=== PATIENT | female | born 1960 | race Caucasian/White ===

== ENCOUNTER 2017-07-14 23:38 | Inpatient (IN) | payer OTHER, SELFPAY ==
[~2017-07-14] VITALS: Ht 157.5 cm; Wt 49.5 kg
[2017-07-15] VITALS (9 sets, daily range): BP systolic 134–201; BP diastolic 87–109
[2017-07-15] MEDS ORDERED: SODIUM CHLORIDE FLUSH 10ML SYR IVF ONE (00:30)
[2017-07-15] MEDS ORDERED: ALBUTEROL/IPRATROPIUM 2.5MG/0.5MG, 3 ML NPPB PRN (00:30)
[2017-07-15] MEDS ORDERED: methylPREDNISolone SOD SUCC 125 MG/2 ML IVP ONE (00:30)
[2017-07-15] MEDS ORDERED: methylPREDNISolone SOD SUCC 125 MG/2 ML ONE (00:49)
[2017-07-15 00:50] LABS: BASOPHILS # (AUTO) 0.03 x10^3/uL (0-0.1); BASOPHILS % (AUTO) 0 % (0-1); EOSINOPHILS # (AUTO) 0.11 x10^3/uL (0-0.4); EOSINOPHILS % (AUTO) 1 % (1-7); LYMPHOCYTES # (AUTO) 1.84 x10^3/uL (1-3.4); LYMPHOCYTES % (AUTO) 20 % (22-44); MD NO; MEAN CORPUSCULAR HEMOGLOBIN 31.4 pg (27.0-34.8); MEAN CORPUSCULAR HGB CONC 34.4 g/dL (32.4-35.8); MEAN CORPUSCULAR VOLUME 91.2 fL (80-100); MEAN PLATELET VOLUME 7.1 fL (7.4-10.4); MONOCYTES # (AUTO) 0.55 x10^3/uL (0.2-0.8); MONOCYTES % (AUTO) 6 % (2-9); NEUTROPHILS # (AUTO) 6.93 x10^3/uL (1.8-6.8); NEUTROPHILS % (AUTO) 73 % (42-75); PLATELET COUNT 445 x10^3/uL (130-400); RED CELL DISTRIBUTION WIDTH 13.2 % (9.6-15.2)
[2017-07-15 00:51] LABS: RAPID INFLUENZA A Negative (Negative); RAPID INFLUENZA B Negative (Negative)
[2017-07-15 01:00] LABS: ALANINE AMINOTRANSFERASE 38 U/L (12-78); ALBUMIN 2.7 g/dL (3.4-5.0); ANION GAP 14 mmol/L (5-15); CALCIUM 8.1 mg/dL (8.5-10.1); CHLORIDE 108 mmol/L (98-107)
[2017-07-15 01:05] LABS: ALKALINE PHOSPHATASE 128 U/L (45-117); BILIRUBIN,TOTAL 0.3 mg/dL (0.2-1.0); CREATININE 0.77 mg/dL (0.55-1.02); TOTAL PROTEIN 7.6 g/dL (6.4-8.2); TROPONIN I < 0.015 ng/mL (0.000-0.045)
[2017-07-15] MEDS ORDERED: NS + 40MEQ KCL 1,000 ML IV SCH (01:30)
[2017-07-15] MEDS ORDERED: NS + 20MEQ KCL 1,000 ML IV SCH (01:30)
[2017-07-15] MEDS ORDERED: SODIUM CHLORIDE FLUSH 10ML SYR IVF PRN (01:30)
[2017-07-15] MEDS ORDERED: SODIUM CHLORIDE 0.9% 1,000 ML IV SCH (05:44)
[2017-07-15] MEDS ORDERED: ONDANSETRON 2MG/ML, 2ML IVPush PRN (06:00)
[2017-07-15] MEDS ORDERED: hydrALAzine 20 MG/ML, 1ML IVPush PRN (06:00)
[2017-07-15] MEDS ORDERED: ACETAMINOPHEN 325 MG TABLET PO PRN (06:00)
[2017-07-15] MEDS: methylPREDNISolone SOD SUCC 40 MG/ML IV SCH ×3 (06:13→21:55)
[2017-07-15] MEDS: ENOXAPARIN 40 MG/0.4 ML SQ SCH (06:14)
[2017-07-15] MEDS: CEFTRIAXONE PMX 1GM/50ML 50 ML IV SCH (06:27)
[2017-07-15] MEDS: AZITHROMYCIN 500 MG in SODIUM CHLORIDE 0.9% 250 ML IV SCH (08:10)
[2017-07-15] MEDS: POTASSIUM CHLORIDE 20 MEQ TAB.ER.PRT PO SCH ×2 (08:11→17:21)
[2017-07-15] MEDS ORDERED: NICOTINE 14MG/24 HR PATCH.TD24 TD SCH (16:00)
[2017-07-15] MEDS ORDERED: LORazepam 2 MG/ML, 1ML IVPush ONE (17:30)
[2017-07-15] MEDS ORDERED: hydrALAzine 20 MG/ML, 1ML IV PRN (17:30)
[2017-07-15] MEDS ORDERED: hydrALAzine 20 MG/ML, 1ML ONE (17:35)
[2017-07-15] MEDS ORDERED: MELATONIN 3 MG TABLET PO PRN (21:00)
[2017-07-16 02:02] VITALS: BP 164/72
[2017-07-16] MEDS ORDERED: ALBUTEROL/IPRATROPIUM 2.5MG/0.5MG, 3 ML NPPB PRN (02:30)
[2017-07-16 04:45] LABS: BASOPHILS # (AUTO) 0.03 x10^3/uL (0-0.1); BASOPHILS % (AUTO) 0 % (0-1); EOSINOPHILS % (AUTO) 0 % (1-7); LYMPHOCYTES # (AUTO) 1.49 x10^3/uL (1-3.4); LYMPHOCYTES % (AUTO) 12 % (22-44); MD NO; MEAN CORPUSCULAR HEMOGLOBIN 31.6 pg (27.0-34.8); MEAN CORPUSCULAR HGB CONC 34.3 g/dL (32.4-35.8); MEAN PLATELET VOLUME 7.3 fL (7.4-10.4); MONOCYTES # (AUTO) 0.62 x10^3/uL (0.2-0.8); MONOCYTES % (AUTO) 5 % (2-9); NEUTROPHILS # (AUTO) 9.87 x10^3/uL (1.8-6.8); NEUTROPHILS % (AUTO) 82 % (42-75); PLATELET COUNT 454 x10^3/uL (130-400); RED BLOOD COUNT 4.51 x10^6/uL (3.82-5.3); RED CELL DISTRIBUTION WIDTH 13.3 % (9.6-15.2)
[2017-07-16 04:55] LABS: ANION GAP 9 mmol/L (5-15); CALCIUM 8.9 mg/dL (8.5-10.1); CHLORIDE 111 mmol/L (98-107)
[2017-07-16 04:57] LABS: CREATININE 0.86 mg/dL (0.55-1.02)
[2017-07-16] MEDS: methylPREDNISolone SOD SUCC 40 MG/ML IV SCH (05:41)
[2017-07-16] MEDS: CEFTRIAXONE PMX 1GM/50ML 50 ML IV SCH (05:42)
[2017-07-16] MEDS: ENOXAPARIN 40 MG/0.4 ML SQ SCH (05:42)
[2017-07-16] MEDS: AZITHROMYCIN 500 MG in SODIUM CHLORIDE 0.9% 250 ML IV SCH (06:34)
[2017-07-16 07:05] VITALS: BP 161/97
[2017-07-16] MEDS ORDERED: PRED10TA PO (08:25)
[2017-07-16] MEDS ORDERED: AZIT500T5 PO (08:25)
[2017-07-16] MEDS ORDERED: ALBU6.7H INH (08:25)
[2017-07-16] MEDS ORDERED: CEFD300C37 PO (08:25)
[2017-07-16 13:13] VITALS: BP 163/96
== END 2017-07-16 13:55 | disposition home or self-care (01) | DRG 193 ==
LOC: ED 07-15 01:08 → EDIP 07-15 01:20 → 4WST 07-15 01:44
PROVIDERS: ADMIT Hospitalist; ATTEND Hospitalist
DX: J18.9 Pneumonia, unspecified organism (principal); E43 Unspecified severe protein-calorie malnutrition; J44.0 Chronic obstructive pulmonary disease with (acute) lower respiratory infection; J44.1 Chronic obstructive pulmonary disease with (acute) exacerbation; F10.239 Alcohol dependence with withdrawal, unspecified; E87.6 Hypokalemia; F17.290 Nicotine dependence, other tobacco product, uncomplicated; Y90.9 Presence of alcohol in blood, level not specified; J20.9 Acute bronchitis, unspecified; I10 Essential (primary) hypertension; F41.9 Anxiety disorder, unspecified; Z77.090 Contact with and (suspected) exposure to asbestos; Z68.20 Body mass index [BMI] 20.0-20.9, adult; Z71.6 Tobacco abuse counseling
CPT/HCPCS: 36415; 71045; 80048; 80053; 83605; 83735; 83880; 84100; 84484; 85025; 87040; 87400; 93005; 94640; 96374; J0456; J0696; J1650; J7620; J0360; J2060; J2920; J2930; J7030; J7050

== ENCOUNTER 2020-08-24 20:07 | Inpatient (IN) | payer OTHER ==
[~2020-08-24] VITALS: Ht 157.5 cm; Wt 54.6 kg
[~2020-08-24 20:07] MED LIST: ALBU6.7H8 INH; AZIT500T10 PO; CEFD300C37 PO; PRED10TA PO
--- NOTE | 2020-08-24 21:23 | NUR ---
Pt speaks full complete sentences, CHOUDHURY in NAD. Waiting for orders from [facility].
[2020-08-24] MEDS ORDERED: LORazepam 2 MG/ML, 1ML ONE (21:59)
[2020-08-24] MEDS ORDERED: ALBUTEROL/IPRATROPIUM 2.5MG/0.5MG, 3 ML ONE (21:59)
[2020-08-24] MEDS ORDERED: ALBUTEROL/IPRATROPIUM 2.5MG/0.5MG, 3 ML NPPB ONE (22:00)
[2020-08-24] MEDS ORDERED: LORazepam 2 MG/ML, 1ML IV ONE (22:00)
[2020-08-24] MEDS ORDERED: THIAMINE 100MG TABLET PO ONE (22:00)
[2020-08-24] MEDS ORDERED: SODIUM CHLORIDE FLUSH 10ML SYR IVF ONE (22:00)
[2020-08-24] MEDS ORDERED: THIAMINE 100MG TABLET ONE (22:01)
[2020-08-24 22:02] LABS: BASOPHILS % (AUTO) 0 % (0-1); EOSINOPHILS % (AUTO) 1 % (1-7); LYMPHOCYTES % (AUTO) 11 % (22-44); MEAN CORPUSCULAR HEMOGLOBIN 32.7 pg (27.0-34.8); MEAN PLATELET VOLUME 7.2 fL (7.4-10.4); MONOCYTES % (AUTO) 7 % (2-9); NEUTROPHILS % (AUTO) 81 % (42-75); PLATELET COUNT 287 x10^3/uL (130-400); RED BLOOD COUNT 4.18 x10^6/uL (3.82-5.3)
[2020-08-24 22:08] LABS: MD NO
--- NOTE | 2020-08-24 22:13 | NUR ---
HHN STARTED, MEDS PER ORDER. PT ON CONT PULSE OX MONITOR. NAD. RR EQUAL AND UNLABORED. LABS SENT, PCXR
[2020-08-24 22:16] LABS: ALANINE AMINOTRANSFERASE 24 U/L (12-78); ALBUMIN 3.4 g/dL (3.4-5.0); ANION GAP 8 mmol/L (5-15); CHLORIDE 107 mmol/L (98-107); CREATININE 0.93 mg/dL (0.55-1.02)
[2020-08-24 22:21] LABS: ALKALINE PHOSPHATASE 76 U/L (45-117)
[2020-08-24 22:22] LABS: TROPONIN I 0.274 ng/mL (0.000-0.045)
--- NOTE | 2020-08-24 22:29 | NUR ---
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 Pt has no chest pain.
--- NOTE | 2020-08-24 22:35 | NUR ---
VSS, increase aeration post HHN, no ectopy no chest pain, pt with less tremors post ativan. Pt states "i feel a lot better. Will continue to monitor.
[2020-08-24] MEDS ORDERED: ASPIRIN 81 MG TABLET CHEW ONE (22:37)
[2020-08-24] MEDS ORDERED: NITROGLYCERIN OINT 2%, 1GM TP ONE ×2 (22:37→23:00)
[2020-08-24] MEDS ORDERED: methylPREDNISolone SOD SUCC 125 MG/2 ML ONE (22:37)
--- NOTE | 2020-08-24 22:45 | NUR ---
Pt sleeping from ativan, remains nsr no ectopy no st elevation. No chest pain, no n/v, no sob. States feels better. medicated per order. NTG paste to chest wall. VSS
[2020-08-24] MEDS ORDERED: methylPREDNISolone SOD SUCC 125 MG/2 ML IVPush SCH (23:00)
[2020-08-24] MEDS ORDERED: ASPIRIN 81 MG TABLET CHEW PO ONE (23:00)
[2020-08-24] MEDS ORDERED: morphine SULFATE 10 MG/ML, 1ML IVPush PRN (23:30)
[2020-08-24] MEDS ORDERED: ACETAMINOPHEN 325 MG TABLET PO PRN (23:30)
[2020-08-24] MEDS ORDERED: ONDANSETRON ODT 4 MG PO PRN (23:30)
[2020-08-24] MEDS ORDERED: BISACODYL 10 MG SUPP PR PRN (23:30)
[2020-08-24] MEDS ORDERED: NITROGLYCERIN 0.4 MG BOTTLE (25 TABS) SL PRN (23:30)
[2020-08-24] MEDS ORDERED: POLYETHYLENE GLYCOL 17 GM PACKET PO PRN (23:30)
[2020-08-24] MEDS ORDERED: hydrALAzine 20 MG/ML, 1ML IVPush PRN (23:30)
--- NOTE | 2020-08-24 23:46 | NUR ---
Report to WALI Molina.
[2020-08-25] MEDS ORDERED: ALBUTEROL HFA 90 MCG/SPRAY INH PRN
[2020-08-25 00:06] VITALS: BP 128/79
[2020-08-25] MEDS: HEPARIN 5,000 UNITS/ML, 1ML SQ SCH ×3 (01:37→17:34)
[2020-08-25] MEDS: SODIUM CHLORIDE FLUSH 10ML SYR IVF SCH ×3 (01:37→20:57)
[2020-08-25 04:41] LABS: BASOPHILS % (AUTO) 0 % (0-1); EOSINOPHILS % (AUTO) 0 % (1-7); LYMPHOCYTES % (AUTO) 7 % (22-44); MEAN CORPUSCULAR HGB CONC 34.7 g/dL (32.4-35.8); MEAN PLATELET VOLUME 7.2 fL (7.4-10.4); MONOCYTES % (AUTO) 3 % (2-9); NEUTROPHILS % (AUTO) 90 % (42-75); PLATELET COUNT 282 x10^3/uL (130-400); RED BLOOD COUNT 4.16 x10^6/uL (3.82-5.3); RED CELL DISTRIBUTION WIDTH 13.2 % (9.6-15.2)
[2020-08-25 04:42] LABS: MD NO
[2020-08-25 04:56] LABS: ANION GAP 7 mmol/L (5-15); CHLORIDE 107 mmol/L (98-107)
[2020-08-25 05:02] LABS: CREATININE 0.77 mg/dL (0.55-1.02)
[2020-08-25 05:03] LABS: CHOL/HDL RATIO 2.3; CHOLESTEROL, TOTAL 249 mg/dL (140-239); HDL CHOL % 43 % (28-40); HDL CHOLESTEROL (DIRECT) 106 mg/dL (40-60); LDL CHOLESTEROL,CALCULATED 127 mg/dL (54-169); LDL/HDL RATIO 1.2 (0.5-3.0); TRIGLYCERIDES 78 mg/dL (50-200); TROPONIN I 0.111 ng/mL (0.000-0.045); VLDL CHOLESTEROL 16 mg/dL (0-25)
[2020-08-25] MEDS ORDERED: ASPIRIN 325 MG TABLET EC PO SCH (06:00)
[2020-08-25] MEDS: ASPIRIN 81 MG TABLET EC PO SCH (06:29)
[2020-08-25] MEDS: methylPREDNISolone SOD SUCC 125 MG/2 ML IVPush SCH ×3 (06:30→22:47)
[2020-08-25 07:53] VITALS: BP 124/83
[2020-08-25] MEDS ORDERED: REGADENOSON 0.4 MG/5 ML SYRINGE ONE (08:06)
[2020-08-25] MEDS: SENNA/DOCUSATE TABLET PO SCH (08:46)
[2020-08-25 10:41] LABS: TROPONIN I 0.059 ng/mL (0.000-0.045)
[2020-08-25] MEDS ORDERED: FUROSEMIDE 40 MG/4 ML IV SCH (11:00)
[2020-08-25] MEDS: AMOXICILLIN/CLAV 875-125MG TABLET PO SCH ×2 (12:01→20:56)
[2020-08-25] MEDS: FUROSEMIDE 40 MG/4 ML IV SCH ×2 (12:01→20:56)
[2020-08-25 13:46] VITALS: BP 124/77
[2020-08-25 20:00] VITALS: BP 159/99
[2020-08-26] MEDS: HEPARIN 5,000 UNITS/ML, 1ML SQ SCH ×2 (01:31→07:51)
[2020-08-26 02:41] VITALS: BP 138/88
[2020-08-26 05:34] LABS: BASOPHILS % (AUTO) 0 % (0-1); EOSINOPHILS % (AUTO) 0 % (1-7); LYMPHOCYTES % (AUTO) 6 % (22-44); MEAN CORPUSCULAR HEMOGLOBIN 32.6 pg (27.0-34.8); MEAN PLATELET VOLUME 7.7 fL (7.4-10.4); MONOCYTES % (AUTO) 3 % (2-9); NEUTROPHILS % (AUTO) 90 % (42-75); PLATELET COUNT 337 x10^3/uL (130-400); RED BLOOD COUNT 4.35 x10^6/uL (3.82-5.3)
[2020-08-26 05:35] LABS: MD NO
[2020-08-26 05:45] LABS: ANION GAP 10 mmol/L (5-15); CALCIUM 9.8 mg/dL (8.5-10.1); CHLORIDE 102 mmol/L (98-107)
[2020-08-26 05:46] LABS: CREATININE 1.18 mg/dL (0.55-1.02)
[2020-08-26] MEDS: ASPIRIN 81 MG TABLET EC PO SCH (06:12)
[2020-08-26] MEDS: methylPREDNISolone SOD SUCC 125 MG/2 ML IVPush SCH (06:12)
[2020-08-26 06:50] VITALS: BP 144/79
[2020-08-26] MEDS ORDERED: PRED10TA PO (07:20)
[2020-08-26] MEDS ORDERED: DOXY100T PO (07:20)
[2020-08-26] MEDS ORDERED: FURO20TA3 PO (07:20)
[2020-08-26] MEDS: AMOXICILLIN/CLAV 875-125MG TABLET PO SCH (07:51)
[2020-08-26] MEDS: FUROSEMIDE 40 MG/4 ML IV SCH (07:51)
[2020-08-26] MEDS: SODIUM CHLORIDE FLUSH 10ML SYR IVF SCH (07:51)
[2020-08-26] MEDS: SENNA/DOCUSATE TABLET PO SCH (07:51)
== END 2020-08-26 10:42 | disposition home or self-care (01) | DRG 280 ==
LOC: ED 21:25 → EDIP 22:47 → 5SO 23:53 → DCLOUNGE 08-26 10:34
PROVIDERS: ADMIT Emergency Medicine; ATTEND Internal Medicine
DX: I11.0 Hypertensive heart disease with heart failure (principal); I21.A1 Myocardial infarction type 2; I50.31 Acute diastolic (congestive) heart failure; J44.1 Chronic obstructive pulmonary disease with (acute) exacerbation; J96.10 Chronic respiratory failure, unspecified whether with hypoxia or hypercapnia; Z20.822 Contact with and (suspected) exposure to COVID-19; F17.200 Nicotine dependence, unspecified, uncomplicated; Z99.81 Dependence on supplemental oxygen
CPT/HCPCS: 36415; 71045; 78452; 80048; 80053; 80061; 80320; 83880; 84484; 85025; 93005; 93017; 93306; 93356; 96374; 96375; 99285; G0378; J1644; J1940; J2785; A9502; G0480; J2060; J2930